=== PATIENT | male | born 1970 | race Caucasian/White ===

== ENCOUNTER 2016-10-13 09:00 | Inpatient (IN) | payer BC ==
[2016-10-13 09:07] VITALS: BMI 27.3
[2016-10-13] MEDS ORDERED: Iohexol 240 (50 ml) PO STA (09:29)
[2016-10-13] MEDS ORDERED: Sodium Chloride 0.9% 1,000 ML IV ONE (09:29)
--- NOTE | 2016-10-13 09:33 | C.PDOC ---
History Of Present Illness 45 y/o male presents to ED with complaints of abdominal pain since last night. Patient describes pain as "bubbly" and states went away for a "few hours" but reoccurred with progressive worsening. Pepto-Bismol was taken with no relief. Patient states last bowel movement was this morning and denies N/V/D, fever, urinary symptoms or any other complaints at this time. Time Seen by Provider: 10/13/16 09:18 Chief Complaint (Nursing): Abdominal Pain History Per: Patient History/Exam Limitations: no limitations Onset/Duration Of Symptoms: Hrs Current Symptoms Are (Timing): Still Present Location Of Pain/Discomfort: RLQ Quality Of Discomfort: Other (bubbly) Associated Symptoms: denies: Fever, Nausea, Vomiting, Diarrhea Last Bowel Movement: Today Past Medical History Reviewed: Historical Data, Nursing Documentation, Vital Signs Vital Signs: Last Vital Signs Temp 98 F 10/13/16 13:20 Pulse 64 10/13/16 17:26 Resp 13 10/13/16 17:26 BP 154/101 H 10/13/16 17:26 Pulse Ox 99 10/13/16 17:26 - Medical History PMH: HTN Family History: States: No Known Family Hx - Social History Hx Alcohol Use: No Hx Substance Use: No Review Of Systems Constitutional: Negative for: Fever, Chills Cardiovascular: Negative for: Chest Pain Respiratory: Negative for: Shortness of Breath Gastrointestinal: Positive for: Abdominal Pain. Negative for: Nausea, Vomiting , Diarrhea Genitourinary: Negative for: Dysuria Musculoskeletal: Negative for: Back Pain Neurological: Negative for: Weakness, Numbness Physical Exam - Physical Exam Appears: Non-toxic, No Acute Distress Skin: Normal Color, Warm Head: Atraumatic, Normacephalic Eye(s): bilateral: Normal Inspection Oral Mucosa: Moist Throat: Normal Cardiovascular: Rhythm Regular, No Murmur Respiratory: Normal Breath Sounds, No Rales, No Rhonchi, No Wheezing Gastrointestinal/Abdominal: Soft, Tenderness (Moderate RLQ Tenderness) Extremity: Normal ROM Neurological/Psych: Oriented x3, Normal Speech, Normal Cognition ED Course And Treatment - Laboratory Results Result Diagrams: 10/13/16 10:12 10/13/16 10:12 ECG Rhythm: Sinus Bradycardia Interpretation Of ECG: Moderate Voltage criteria for LVH, may be normal variant. Borderline ECG Rate From EC O2 Sat by Pulse Oximetry: 99 (RA) Pulse Ox Interpretation: Normal - CT Scan/US abd/pel Other Rad Studies (CT/US): Radiology Report Reviewed CT/US Interpretation: IMPRESSION: Wedge-shaped region of diminished enhancement identified involving the right mid pole kidney which may reflect pyelonephritis. Differential considerations include sequela of vascular insults/ infarct or infiltrating process. Evidence of annular pancreas. Hepatic steatosis. Too small to characterize 4 mm hepatic dome hypodensity ; statistically likely cyst or hemangioma. Medical Decision Making Medical Decision Making: Pt remained stable in the ED abd remained soft CT and labs results discussed with pt including need for admission Also discussed with dr Llanes, who agrees with plan but requested admission to dr Garner Discussed with him, accepts pt to service Disposition - Disposition Disposition: HOSPITALIZED Disposition Time: 14:52 Condition: GOOD - Clinical Impression Clinical Impression: Abdominal pain, Renal infarction - PA / DRAMATIC AGENT / Resident Statement MD/DO has reviewed & agrees with the documentation as recorded. MD/DO has examined the patient and agrees with the treatment plan. - Scribe Statement The provider has reviewed the documentation as recorded by the Anilibsabrina Grande All medical record entries made by the Irene were at my direction and personally dictated by me. I have reviewed the chart and agree that the record accurately reflects my personal performance of the history, physical exam, medical decision making, and the department course for this patient. I have also personally directed, reviewed, and agree with the discharge instructions and disposition.
[2016-10-13] MEDS ORDERED: Sodium Chloride 0.9% 1,000 ML ONE (10:07)
[2016-10-13] MEDS ORDERED: Morphine 4 MG/ML VIAL ONE (10:08)
[2016-10-13] MEDS ORDERED: Iohexol 240 (50 ml) ONE (10:18)
[2016-10-13 10:19] LABS: BASO % 0.5 % (0.0-2.0); EOS % 0.2 % (0.0-4.0); HEMATOCRIT 44.9 % (35.0-51.0); LYMPH # 1.3 K/uL (1.0-4.3); LYMPH % 16.7 % (20.0-40.0); MEAN CELL VOLUME 86.5 fL (80.0-94.0); MEAN CORPUSCULAR HEMOGLOBIN 29.7 pg (27.0-31.0); MEAN CORPUSCULAR HGB CONC 34.4 g/dL (33.0-37.0); MEAN PLATELET VOLUME 9.5 fL (7.2-11.7); MONO # 0.4 K/uL (0.0-0.8); MONO % 5.6 % (0.0-10.0); NRBC % 0.1 % (0.0-2.0); RED CELL DISTRIBUTION WIDTH 13.7 % (11.5-14.5); WHITE BLOOD COUNT 7.5 K/uL (4.8-10.8)
[2016-10-13 10:29] LABS: CHLORIDE 93 mmol/L (98-107); SODIUM 133 mmol/L (132-148)
[2016-10-13 10:30] LABS: POTASSIUM 3.4 mmol/L (3.6-5.2)
[2016-10-13 10:32] LABS: ALB/GLOB RATIO 1.4 (1.0-2.1); ALKALINE PHOSPHATASE 40 U/L (38-126); ALT/SGPT 43 U/L (21-72); AST/SGOT 38 U/L (17-59); BILIRUBIN,TOTAL 1.1 mg/dL (0.2-1.3); BLOOD UREA NITROGEN 7 mg/dL (9-20); CARBON DIOXIDE 31 mmol/L (22-30); GFR AFRICAN-AMERICAN > 60; GLUCOSE,RANDOM 100 mg/dL (75-110); TOTAL PROTEIN 7.3 g/dL (6.3-8.3)
[2016-10-13 10:33] LABS: CALCIUM 8.7 mg/dl (8.6-10.4)
[2016-10-13 10:43] LABS: RBC URINE 2 /hpf (0-3); URINE BILIRUBIN NEGATIVE (NEGATIVE); URINE BLOOD 1+ (NEGATIVE); URINE COLOR Yellow (YELLOW); URINE GLUCOSE (UA) NORMAL (Normal); URINE KETONE NEGATIVE (NEGATIVE); URINE LEUKOCYTE ESTERASE NEG Leu/uL (Negative); URINE PROTEIN NEGATIVE (NEGATIVE); URINE UROBILINOGEN NORMAL mg/dL (0.2-1.0); WBC URINE < 1 /hpf (0-5)
[2016-10-13] MEDS ORDERED: Iodixanol 320 MG/ML 100 ML BOTTLE IV ONE (11:53)
--- NOTE | 2016-10-13 12:29 | CT ---
PROCEDURE: CT Abdomen and Pelvis with oral and IV contrast. HISTORY: RLQ abdominal pain COMPARISON: None available. TECHNIQUE: Contiguous axial images of the abdomen and pelvis. Oral and IV contrast was administered. Coronal and Sagittal reformats generated and reviewed. Contrast dose: 100 cc visi opaque 320 Radiation dose: Total exam DLP = 928.51 mGy-cm. This CT exam was performed using one or more of the following dose reduction techniques: Automated exposure control, adjustment of the mA and/or kV according to patient size, and/or use of iterative reconstruction technique. FINDINGS: LOWER THORAX: No visible consolidation, pleural effusion, or pneumothorax. LIVER: Too small to characterize 4 mm hepatic dome hypodensity.Hypoattenuation of the liver compatible with hepatic steatosis. GALLBLADDER AND BILE DUCTS: Unremarkable. PANCREAS: The pancreas appears to surround the 2nd part of the duodenum compatible with annular pancreas. SPLEEN: 16 mm splenule. Otherwise unremarkable. ADRENALS: Unremarkable. KIDNEYS AND URETERS: Wedge-shaped region of diminished enhancement identified involving the right mid pole kidney which may reflect pyelonephritis. Differential considerations include sequela of vascular insults/infarct or infiltrating process. No hydronephrosis or obstructing renal calculus. BLADDER: The urinary bladder appears unremarkable. REPRODUCTIVE: Unremarkable. APPENDIX: The appendix appears within normal limits of caliber. No secondary signs of acute appendicitis. BOWEL: The stomach is nondistended. The bowel loops appear within normal limits of caliber without evidence of intestinal obstruction. PERITONEUM: No significant free fluid. No definite free air. LYMPH NODES: No bulky lymphadenopathy identified. VASCULATURE: No aortic aneurysm. BONES: No acute osseous abnormality is detected. OTHER FINDINGS: None. IMPRESSION: Wedge-shaped region of diminished enhancement identified involving the right mid pole kidney which may reflect pyelonephritis. Differential considerations include sequela of vascular insults/infarct or infiltrating process. Evidence of annular pancreas. Hepatic steatosis. Too small to characterize 4 mm hepatic dome hypodensity ; statistically likely cyst or hemangioma.
[2016-10-13] MEDS ORDERED: Metoprolol Succinate 25 mg XL Tab PO ONE (13:37)
[2016-10-13] MEDS ORDERED: HYDROmorphone 0.5 mg/0.5 ml ISec IVP PRN (16:12)
--- NOTE | 2016-10-13 16:20 | CP.PCM.HP ---
History of Present Illness - History of Present Illness History of Present Illness: Chief complaint: Abdominal pain History present illness: 45-year-old male with a known history of hypertension came to the emergency room with abdominal pain. Patient was doing well until yesterday afternoon, while he was working he started suddenly noticing pain in the right flank region. This happened after eating lunch. The pain gradually got worse. Again not the evening 5:00 patient got the symptoms worse. Last night the patient was not able to sleep, he was also having increasing abdominal discomfort. He did not have any fever. Nausea sensation noted, but no vomiting noted. He was having frequent bowel movements, but was small amount and solid. Patient was also having increasing urinary discomfort and frequency, small amounts of urination more frequently noted, especially after drinking some water. He still having symptoms of more frequent urination. But no discomfort no fever no chills noted. The pain continues to be present this morning, he was not able to eat anything, and he came into the emergency room. He did not have any recent procedure, no other major problems happened. He did not have any illness in the past. He is taking his medication for the blood pressure. Past medical history: Hypertension Past surgical history: None Allergies: No known drug allergy Personal history: Lifelong nonsmoker, social alcoholic. No drug abuse. Patient is very healthy, participating physical exercise regularly. Family history: Noncontributory. Father and mother healthy, but father had a history of lung cancer. Siblings healthy. Review of system: Patient has no headache, no chest pain, no palpitation. Right flank pain, suddenly noted. Associated with the some abdominal discomfort. Nausea occasionally noted. But increasing urinary frequency noted. 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 Suspected infarct versus pyelonephritis. Assessment and recommendation: 45-year-old male now admitted with the sudden pain, and the right flank region, likely kidney infarct cannot be ruled out, but the source unclear at this time. Possible infarction also possible. I spoke to the steam power plant operator, cylinder die machine helper, and infectious disease. Also blood pressure is somewhat elevated. In spite of the medication still high. We'll start the patient on hypotonic saline, blood pressure control with the angiotensin receptor tori. Amlodipine as needed. Workup to find out other causes of for thromboembolism. Telemetry monitoring. EKG showing normal sinus rhythm in the telemetry. We'll start the patient on antibiotic. Cultures were taken. Awaiting consultants, will follow the patient. Present on Admission - Present on Admission Any Indicators Present on Admission: No History of DVT/PE: No History of Uncontrolled Diabetes: No Urinary Catheter: No Decubitus Ulcer Present: No Past Patient History - Past Social History Smoking Status: Never Smoked - CARDIAC Hx Hypertension: Yes - PSYCHIATRIC Hx Substance Use: No - SURGICAL HISTORY Hx Surgeries: No - ANESTHESIA Hx Anesthesia: No Meds Allergies/Adverse Reactions: Allergies Allergy/AdvReac Type Severity Reaction Status Date / Time No Known Allergies Allergy Verified 10/13/16 09:05 Results - Vital Signs Recent Vital Signs: Last Vital Signs Temp 98 F 10/13/16 13:20 Pulse 63 10/13/16 15:25 Resp 18 10/13/16 15:25 BP 165/103 H 10/13/16 15:25 Pulse Ox 99 10/13/16 15:25 - Labs Result Diagrams: 10/13/16 10:12 10/13/16 10:12
[2016-10-13] MEDS ORDERED: Sodium Chloride 0.45% 1,000 ML IV ONE (16:28)
[2016-10-13] MEDS ORDERED: HYDROmorphone 1 mg/ml ISec ONE (16:28)
[2016-10-13] MEDS ORDERED: Sodium Chloride 0.45% 1,000 ML IV SCH (16:30)
[2016-10-13] MEDS ORDERED: Ciprofloxacin 400mg/200ml D5W 400 MG/200 ML BAG IVPB SCH (18:45)
--- NOTE | 2016-10-13 20:11 | CP.PCM.CON ---
History of Present Illness - History of Present Illness History of Present Illness: CC/HPI: 45 Male with H xof HTN admitted for renal infarct and abdominal pain. Denies hx of DM, Hyperlipidemia and CAD Patient is a non smoker Review of Systems - Review of Systems All systems: reviewed and no additional remarkable complaints except - Gastrointestinal Gastrointestinal: Abdominal Pain, Bloating, Nausea Past Patient History - Infectious Disease Hx of Infectious Diseases: None - Past Social History Smoking Status: Never Smoked - CARDIAC Hx Cardiac Disorders: No Hx Angina: No Hx Atrial Fibrillation: No Hx Circulatory Problems: No Hx Hypertension: Yes - PULMONARY Hx Respiratory Disorders: No - NEUROLOGICAL Hx Neurological Disorder: No - HEENT Hx HEENT Problems: No - RENAL Hx Chronic Kidney Disease: No - ENDOCRINE/METABOLIC Hx Endocrine Disorders: No - HEMATOLOGICAL/ONCOLOGICAL Hx Blood Disorders: No - MUSCULOSKELETAL/RHEUMATOLOGICAL Hx Musculoskeletal Disorders: No - GASTROINTESTINAL Hx Gastrointestinal Disorders: No - PSYCHIATRIC Hx Substance Use: No - SURGICAL HISTORY Hx Surgeries: No - ANESTHESIA Hx Anesthesia: No Meds Allergies/Adverse Reactions: Allergies Allergy/AdvReac Type Severity Reaction Status Date / Time No Known Allergies Allergy Verified 10/13/16 09:05 - Medications Medications: Current Medications Amlodipine Besylate (Norvasc) 5 mg PO DAILY [facility] Aspirin (Aspirin Chewable) 81 mg PO DAILY [facility] Hydromorphone HCl (Dilaudid) 0.5 mg IVP Q6H PRN PRN Reason: Pain, moderate (4-7) Last Admin: 10/13/16 16:35 Dose: 0.5 mg Sodium Chloride (Sodium Chloride 0.45%) 1,000 mls @ 75 mls/hr IV .[id number] [facility] Last Admin: 10/13/16 16:35 Dose: 75 mls/hr Ciprofloxacin (Cipro 400mg/200ml Dsw) 400 mg in 200 mls @ 133 mls/hr IVPB Q12H [facility] Metronidazole (Flagyl) 250 mg in 50 mls @ 50 mls/hr IVPB Q8 [facility] Stop: 10/18/16 22:01 Losartan Potassium (Cozaar) 50 mg PO DAILY [facility] Ondansetron HCl (Zofran Inj) 4 mg IVP Q8 PRN PRN Reason: nause Pantoprazole Sodium (Protonix Inj) 40 mg IVP DAILY [facility] Physical Exam - Constitutional Appears: Well - Head Exam Head Exam: ATRAUMATIC - Eye Exam Eye Exam: EOMI, Normal appearance - ENT Exam ENT Exam: Mucous Membranes Moist - Neck Exam Neck exam: Positive for: Normal Inspection - Respiratory Exam Respiratory Exam: Clear to Auscultation Bilateral, NORMAL BREATHING PATTERN - Cardiovascular Exam Cardiovascular Exam: REGULAR RHYTHM - GI/Abdominal Exam GI & Abdominal Exam: Normal Bowel Sounds, Soft - Extremities Exam Extremities exam: Positive for: normal inspection - Neurological Exam Neurological exam: CN II-XII Intact, Oriented x3 Results - Vital Signs Recent Vital Signs: Last Vital Signs Temp 98.3 F 10/13/16 18:53 Pulse 61 10/13/16 18:53 Resp 20 10/13/16 18:53 BP 177/103 H 10/13/16 18:53 Pulse Ox 96 10/13/16 18:53 - Labs Result Diagrams: 10/14/16 05:21 10/14/16 05:21 Labs: Laboratory Results - last 24 hr 10/13/16 19:48 Lactate Dehydrogenase 397 Assessment & Plan - Assessment and Plan (Free Text) Assessment: 1. HTN: Controlled. Patient states Metoprolol not helping. Would prefer Benicar instead 2. Renal Infarct: Check ECHO, Renal ultrasound. If clinically indicated will perform [place]
[2016-10-13] MEDS: Ciprofloxacin 400mg/200ml D5W 400 MG/200 ML BAG IVPB SCH (20:15)
[2016-10-13] MEDS ORDERED: Potassium Chloride 40 MEQ in Sodium Chloride 0.45% 1,000 ML IV SCH (20:26)
[2016-10-13] MEDS: metroNIDAZOLE IV 250mg/50 ml 250 MG/50 ML BAG IVPB SCH (21:30)
[2016-10-13] MEDS ORDERED: metroNIDAZOLE IV 500 mg/100 ml 250 MG in Premixed IV 1 EA IVPB SCH (22:00)
[2016-10-14] MEDS: metroNIDAZOLE IV 250mg/50 ml 250 MG/50 ML BAG IVPB SCH ×3 (05:07→21:09)
[2016-10-14 06:20] LABS: BASO % 0.5 % (0.0-2.0); EOS % 0.7 % (0.0-4.0); LYMPH # 1.6 K/uL (1.0-4.3); LYMPH % 26.4 % (20.0-40.0); MEAN CELL VOLUME 86.2 fL (80.0-94.0); MEAN CORPUSCULAR HEMOGLOBIN 29.9 pg (27.0-31.0); MEAN CORPUSCULAR HGB CONC 34.7 g/dL (33.0-37.0); MEAN PLATELET VOLUME 9.4 fL (7.2-11.7); MONO # 0.6 K/uL (0.0-0.8); MONO % 9.3 % (0.0-10.0); NRBC % 0.1 % (0.0-2.0); RED CELL DISTRIBUTION WIDTH 13.4 % (11.5-14.5)
[2016-10-14 06:36] LABS: CHLORIDE 97 mmol/L (98-107); SODIUM 137 mmol/L (132-148)
[2016-10-14 06:37] LABS: POTASSIUM 3.4 mmol/L (3.6-5.2)
[2016-10-14 06:38] LABS: CARBON DIOXIDE 28 mmol/L (22-30); CHOLESTEROL 226 mg/dL (0-199); GFR AFRICAN-AMERICAN > 60
[2016-10-14 06:39] LABS: ALB/GLOB RATIO 1.4 (1.0-2.1); ALKALINE PHOSPHATASE 36 U/L (38-126); ALT/SGPT 42 U/L (21-72); AST/SGOT 28 U/L (17-59); BILIRUBIN,TOTAL 1.4 mg/dL (0.2-1.3); BLOOD UREA NITROGEN 7 mg/dL (9-20); CALCIUM 7.9 mg/dl (8.6-10.4); GLUCOSE,RANDOM 95 mg/dL (75-110); TOTAL PROTEIN 7.1 g/dL (6.3-8.3)
[2016-10-14 06:48] LABS: HOMOCYSTEINE 6.8 umol/L (6.6-14.8)
[2016-10-14 07:39] LABS: RBC URINE 1 /hpf (0-3); URINE BILIRUBIN NEGATIVE (NEGATIVE); URINE BLOOD NEGATIVE (NEGATIVE); URINE COLOR Yellow (YELLOW); URINE GLUCOSE (UA) NORMAL (Normal); URINE KETONE NEGATIVE (NEGATIVE); URINE LEUKOCYTE ESTERASE NEG Leu/uL (Negative); URINE PROTEIN NEGATIVE (NEGATIVE); URINE UROBILINOGEN NORMAL mg/dL (0.2-1.0); WBC URINE < 1 /hpf (0-5)
[2016-10-14] MEDS: Ciprofloxacin 400mg/200ml D5W 400 MG/200 ML BAG IVPB SCH ×2 (08:28→19:04)
--- NOTE | 2016-10-14 14:30 | CP.PCM.CON ---
History of Present Illness - History of Present Illness History of Present Illness: 45 yo male with history of htn, on one medicine, fair control, presents with acute right lower quadrant pain. Described the pain as gas, worsening for several hours. Ct scan of abdomen/pelvis with suggestion of ?right renal infarct vs pyelonephritis. Pt has no history of hypercoaguability or family history. No history of renal disease. No history of irregular rhythm. Renal function appears normal and urine analysis is normal as well. No herbal supplements. Review of Systems - Constitutional Constitutional: absent: Anorexia, Chills - EENT Eyes: absent: Change in Vision, Other Visual Disturbances Nose/Mouth/Throat: absent: Epistaxis, Nasal Congestion - Cardiovascular Cardiovascular: absent: Chest Pain, Rapid Heart Rate - Respiratory Respiratory: absent: Dyspnea, Stridor - Gastrointestinal Gastrointestinal: Abdominal Pain, Bloating - Genitourinary Genitourinary: absent: Difficulty Urinating, Flank Pain, Hematuria - Musculoskeletal Musculoskeletal: absent: Joint Swelling, Muscle Cramps - Integumentary Integumentary: absent: Bleeding Lesions, Change in Hair - Neurological Neurological: absent: Convulsions, Disequilibrium - Psychiatric Psychiatric: absent: Memory Loss, Mood Swings Past Patient History - Infectious Disease Hx of Infectious Diseases: None - Past Medical History & Family History Past Medical History?: Yes - Past Social History Smoking Status: Never Smoked - CARDIAC Hx Cardiac Disorders: No Hx Angina: No Hx Atrial Fibrillation: No Hx Circulatory Problems: No Hx Hypertension: Yes - PULMONARY Hx Respiratory Disorders: No - NEUROLOGICAL Hx Neurological Disorder: No - HEENT Hx HEENT Problems: No - RENAL Hx Chronic Kidney Disease: No - ENDOCRINE/METABOLIC Hx Endocrine Disorders: No - HEMATOLOGICAL/ONCOLOGICAL Hx Blood Disorders: No - INTEGUMENTARY Hx Dermatological Problems: No - MUSCULOSKELETAL/RHEUMATOLOGICAL Hx Musculoskeletal Disorders: No - GASTROINTESTINAL Hx Gastrointestinal Disorders: No - GENITOURINARY/GYNECOLOGICAL Hx Genitourinary Disorders: No - PSYCHIATRIC Hx Substance Use: No - SURGICAL HISTORY Hx Surgeries: No - ANESTHESIA Hx Anesthesia: No Meds Allergies/Adverse Reactions: Allergies Allergy/AdvReac Type Severity Reaction Status Date / Time No Known Allergies Allergy Verified 10/13/16 09:05 - Medications Medications: Current Medications Amlodipine Besylate (Norvasc) 5 mg PO DAILY [facility] Last Admin: 10/14/16 11:01 Dose: 5 mg Aspirin (Aspirin Chewable) 81 mg PO DAILY [facility] Last Admin: 10/14/16 11:01 Dose: 81 mg Hydromorphone HCl (Dilaudid) 0.5 mg IVP Q6H PRN PRN Reason: Pain, moderate (4-7) Last Admin: 10/13/16 16:35 Dose: 0.5 mg Ciprofloxacin (Cipro 400mg/200ml Dsw) 400 mg in 200 mls @ 133 mls/hr IVPB Q12H [facility] Last Admin: 10/14/16 08:28 Dose: 133 mls/hr Metronidazole (Flagyl) 250 mg in 50 mls @ 50 mls/hr IVPB Q8 [facility] Stop: 10/18/16 22:01 Last Admin: 10/14/16 13:43 Dose: 50 mls/hr Potassium Chloride 40 meq/ (Sodium Chloride) 1,020 mls @ 75 mls/hr IV .[id number] [facility] Last Admin: 10/13/16 21:00 Dose: 75 mls/hr Losartan Potassium (Cozaar) 50 mg PO Q12 [facility] Last Admin: 10/14/16 11:00 Dose: 50 mg Ondansetron HCl (Zofran Inj) 4 mg IVP Q8 PRN PRN Reason: nause Pantoprazole Sodium (Protonix Inj) 40 mg IVP DAILY [facility] Last Admin: 10/14/16 11:00 Dose: 40 mg Pneumococcal Polyvalent Vaccine (Pneumovax 23 Vaccine) 0.5 ml IM .ONCE ONE Stop: 10/15/16 09:29 Physical Exam - Head Exam Head Exam: ATRAUMATIC - Eye Exam Eye Exam: EOMI, Normal appearance - ENT Exam ENT Exam: Mucous Membranes Moist - Neck Exam Neck exam: Positive for: Full Rom. Negative for: Lymphadenopathy - Respiratory Exam Respiratory Exam: NORMAL BREATHING PATTERN. absent: Accessory Muscle Use - Cardiovascular Exam Cardiovascular Exam: REGULAR RHYTHM. absent: Rubs - GI/Abdominal Exam GI & Abdominal Exam: Normal Bowel Sounds. absent: Guarding - Extremities Exam Extremities exam: Negative for: pedal edema Results - Vital Signs Recent Vital Signs: Last Vital Signs Temp 97.6 F 10/14/16 07:20 Pulse 65 10/14/16 07:20 Resp 20 10/14/16 07:20 BP 142/89 10/14/16 07:20 Pulse Ox 98 10/14/16 07:20 - Labs Result Diagrams: 10/14/16 05:21 10/14/16 05:21 Labs: Laboratory Results - last 24 hr 10/13/16 10/14/16 10/14/16 19:48 05:21 05:21 WBC 6.0 RBC 5.22 Hgb 15.6 Hct 45.0 MCV 86.2 MCH 29.9 MCHC 34.7 RDW 13.4 Plt Count 155 MPV 9.4 Neut % (Auto) 63.1 Lymph % (Auto) 26.4 D[place]key % (Auto) 9.3 Eos % (Auto) 0.7 Baso % (Auto) 0.5 Neut # 3.8 Lymph # 1.6 Dickey # 0.6 Eos # 0.0 Baso # 0.0 Sodium 137 Potassium 3.4 L Chloride 97 L Carbon Dioxide 28 Anion Gap 15 BUN 7 L Creatinine 0.8 Est GFR ( Amer) > 60 Est GFR (Non-Af Amer) > 60 Random Glucose 95 Calcium 7.9 L Total Bilirubin 1.4 H AST 28 ALT 42 Alkaline Phosphatase 36 L Lactate Dehydrogenase 397 Total Protein 7.1 Albumin 4.1 Globulin 3.0 Albumin/Globulin Ratio 1.4 Triglycerides 66 Cholesterol 226 H LDL Cholesterol Direct 152 H HDL Cholesterol 45 Homocysteine 6.8 Urine Color Urine Clarity Urine pH Ur Specific [place] Urine Protein Urine Glucose (UA) Urine Ketones Urine Blood Urine Nitrate Urine Bilirubin Urine Urobilinogen Ur Leukocyte Esterase Urine WBC (Auto) Urine RBC (Auto) Ur Squamous Epith Cells Urine Eosinophils 10/14/16 10/14/16 06:56 07:03 WBC RBC Hgb Hct MCV MCH MCHC RDW Plt Count MPV Neut % (Auto) Lymph % (Auto) [place] % (Auto) Eos % (Auto) Baso % (Auto) Neut # Lymph # [place]key # Eos # Baso # Sodium Potassium Chloride Carbon Dioxide Anion Gap BUN Creatinine Est GFR ( Amer) Est GFR (Non-Af Amer) Random Glucose Calcium Total Bilirubin AST ALT Alkaline Phosphatase Lactate Dehydrogenase Total Protein Albumin Globulin Albumin/Globulin Ratio Triglycerides Cholesterol LDL Cholesterol Direct HDL Cholesterol Homocysteine Urine Color Yellow Urine Clarity Clear Urine pH 7.0 Ur Specific [place] 1.011 Urine Protein Negative Urine Glucose (UA) Normal Urine Ketones Negative Urine Blood Negative Urine Nitrate Negative Urine Bilirubin Negative Urine Urobilinogen Normal Ur Leukocyte Esterase Neg Urine WBC (Auto) < 1 Urine RBC (Auto) 1 Ur Squamous Epith Cells < 1 Urine Eosinophils Negative Assessment & Plan - Assessment and Plan (Free Text) Assessment: ?renal infarct agree with us of kidneys to evaluate check MRA of renal arteries heme w/u to r/o hypercoaguable syndrome cardiology w/u to r/o embolic disease
--- NOTE | 2016-10-14 15:04 | VASCLAB ---
PROCEDURE: HISTORY: thromboembolism COMPARISON: None available. TECHNIQUE: Grayscale and duplex Doppler evaluation of the cervical carotid and vertebral arteries were performed. The common carotid, carotid bifurcations and cervical Internal Carotid Artery (ICA) and proximal External Carotid Artery (ECA) were evaluated. The vertebral arteries were evaluated for gross patency and flow direction. Report prepared by Tigre Esposito, BS, RVT FINDINGS: RIGHT CAROTID ARTERIES: 1. Common Carotid Artery: No significant focal plaque formation of the right common carotid artery. Maximum Peak Systolic velocity: 90 cm/sec: End-diastolic velocity 19 cm/sec. 2. Carotid Bifurcation: plaque formation. Maximum Peak Systolic velocity: 81 cm/sec: End-diastolic velocity 17 cm/sec. 3. Internal Carotid Artery: Plaque description: 3.1. Proximal Segment: Peak systolic velocity 67 cm/sec: End-diastolic velocity 26 cm/sec - % stenosis 0-15% 3.2. Middle Segment: Peak systolic velocity 83 cm/sec: End-diastolic velocity 34 cm/sec - % stenosis 0-15% 3.3. Distal Segment: Peak systolic velocity 77 cm/sec: End-diastolic velocity 30 cm/sec - % stenosis 0-15% 4. External Carotid Artery: No significant focal plaque formation. Peak systolic velocity 116 cm/sec 5. ICA/CCA Ratio: 0.9 LEFT CAROTID ARTERIES: 1. Common Carotid Artery: No significant focal plaque formation of the left common carotid artery. Maximum Peak Systolic velocity: 82 cm/sec: End-diastolic velocity 20 cm/sec. 2. Carotid Bifurcation: plaque formation. Maximum Peak Systolic velocity: 73 cm/sec: End-diastolic velocity 19 cm/sec. 3. Internal Carotid Artery: Plaque description: 3.1. Proximal Segment: Peak systolic velocity 87 cm/sec: End-diastolic velocity 30 cm/sec - % stenosis 0-15% 3.2. Middle Segment: Peak systolic velocity 82 cm/sec: End-diastolic velocity 34 cm/sec - % stenosis 0-15% 3.3. Distal Segment: Peak systolic velocity 59 cm/sec: End-diastolic velocity 23 cm/sec - % stenosis 0-15% 4. External Carotid Artery: No significant focal plaque formation. Peak systolic velocity 91 cm/sec 5. ICA/CCA Ratio: 1.1 VERTEBRAL ARTERIES: 1. Right Vertebral Artery: The right vertebral artery flow direction is antegrade. 2. Left Vertebral Artery: The left vertebral artery flow direction is antegrade. OTHER FINDINGS: 1. Right Brachial Blood pressure: 148 mmHg. 2. Left Brachial Blood pressure: 150 mmHg. IMPRESSION: RIGHT: Duplex scan does not suggest hemodynamically significant stenosis of the right extracranial carotid arteries. LEFT: Duplex scan does not suggest hemodynamically significant stenosis of the left extracranial carotid arteries.
[2016-10-14 16:21] VITALS: TEMP 97.1; O2SAT 99
[2016-10-14 21:19] VITALS: BP 153/90; PULSE 78; RESP 20
[2016-10-15] MEDS ORDERED: Pneumococcal 23-Valent Vaccine IM ONE (09:28)
--- NOTE | 2016-10-15 11:56 | CARD ---
APPROVED REPORT EXAM: Two-dimensional and M-mode echocardiogram with Doppler and color Doppler. Other Information Quality : GoodRhythm : INDICATION Chest Pain M-Mode DIMENSIONS RVDd2.08 (2.1-3.2cm)Left Atrium (MM)3.40 (2.5-4.0cm) IVSd1.21 (0.7-1.1cm)Aortic Root3.02 (2.2-3.7cm) LVDd5.52 (4.0-5.6cm)Aortic Cusp Exc.2.43 (1.5-2.0cm) PWd1.08 (0.7-1.1cm)FS (%) 34 % LVDs3.64 (2.0-3.8cm)LVEF (%)62 (>50%) Mitral Valve MV E Wnvyplvm59.2cm/sMV A Sjpwswhz09.1cm/sE/A ratio1.1 TDI E/Lateral E'0.0E/Medial E'0.0 Tricuspid Valve TR Peak Uzwdmitb459zs/sTR Peak Gr.[id number] LEFT VENTRICLE The left ventricle is normal size. There is normal left ventricular wall thickness. The left ventricular function is normal. The left ventricular ejection fraction is within the normal range. There is normal LV segmental wall motion. The left ventricular diastolic function is normal. No left ventricle thrombus noted on this study. There is no ventricular septal defect visualized. There is no left ventricular aneurysm. There is no mass noted in the left ventricle. RIGHT VENTRICLE The right ventricle is normal size. There is normal right ventricular wall thickness. The right ventricular systolic function is normal. ATRIA The left atrium size is normal. The right atrium size is normal. The interatrial septum is intact with no evidence for an atrial septal defect. AORTIC VALVE The aortic valve is normal in structure. No aortic regurgitation is present. There is no aortic valvular stenosis. There is no aortic valvular vegetation. MITRAL VALVE The mitral valve is normal in structure. There is no evidence of mitral valve prolapse. There is no mitral valve stenosis. There is no mitral valve regurgitation noted. TRICUSPID VALVE The tricuspid valve is normal in structure. There is no tricuspid valve regurgitation noted. There is no tricuspid valve prolapse or vegetation. There is no tricuspid valve stenosis. PULMONIC VALVE The pulmonary valve is normal in structure. There is trace pulmonic valvular regurgitation. GREAT VESSELS The aortic root is normal in size. The ascending aorta is normal in size. The pulmonary artery is normal. The IVC is normal in size and collapses >50% with inspiration. PERICARDIAL EFFUSION There is no pericardial effusion. <Conclusion> NORMAL STUDY. LVEF IS 60%.
--- NOTE | 2016-10-15 12:02 | CARD ---
APPROVED REPORT EKG Measurement Heart [id number] <Conclusion> Sinus bradycardia Moderate voltage criteria for LVH, may be normal variant Borderline ECG
== END 2016-10-14 21:50 | disposition home or self-care (01) | DRG 700 ==
LOC: C.ER 09:00 → C.9E 15:09 → C.3T 15:17 → C.9E 16:32 → C.6T 17:15
PROVIDERS: ADMIT Internal Medicine; ATTEND Internal Medicine
DX: N28.0 Ischemia and infarction of kidney (principal); I10 Essential (primary) hypertension; Z80.1 Family history of malignant neoplasm of trachea, bronchus and lung